=== PATIENT | female | born 1945 | race Caucasian/White ===

== ENCOUNTER 2016-11-04 12:12 | Emergency (ER) | payer MEDICARE, OTHER ==
[~2016-11-04] VITALS: Ht 157.5 cm; Wt 117.9 kg
[~2016-11-04 12:12] MED LIST: AMLO5TAB2 PO; ASPI81TA85 PO; ATEN50TA2 PO; BENA40TA PO; CELE20TA PO; COLA100C3 PO; CREAM TOP; DOCU100C PO; FURO20TA2 PO; LEVA500T PO; LORT5TAB PO; PRAV1TAB39 PO; PRAV40TA2 PO; STOO100C PO; TYLE325T5 PO
[2016-11-04] MEDS ORDERED: AMLO5TAB2 PO (12:37)
--- NOTE | 2016-11-04 14:13 | REP ---
Clinical: Abdominal pain and constipation. Technique: Two supine views of the abdomen and pelvis. Findings: Mild fecal stasis and constipation cannot be excluded. No evidence for bowel obstruction. Prior cholecystectomy noted. Skeletal structures demonstrate age-related degenerative changes. No organomegaly. Impression: Mild fecal stasis and constipation cannot be excluded. No evidence for bowel obstruction. Signed by Ethan Andrew MD 11/04/2016 02:03 P
[2016-11-04] MEDS ORDERED: FLEET OIL RETENTION ENEMA PR ONE (14:30)
[2016-11-04 16:12] VITALS: BP 150/67
[2016-11-04] MEDS ORDERED: MAGNESIUM CITRATE 300 ML BTL PO ONE (16:15)
== END 2016-11-04 16:20 | disposition home or self-care (01) ==
LOC: M ED 14:28
DX: K59.00 Constipation, unspecified (principal); I11.0 Hypertensive heart disease with heart failure; I50.9 Heart failure, unspecified; E66.01 Morbid (severe) obesity due to excess calories; Z95.0 Presence of cardiac pacemaker; Z88.0 Allergy status to penicillin; Z88.1 Allergy status to other antibiotic agents; Z79.899 Other long term (current) drug therapy; Z79.82 Long term (current) use of aspirin

== ENCOUNTER 2017-02-05 09:28 | Emergency (ER) | payer MEDICARE ==
[~2017-02-05] VITALS: Ht 157.5 cm; Wt 120.3 kg
[~2017-02-05 09:28] MED LIST changes: -COLA100C3 PO; +COLA100C5 PO; -DOCU100C PO; +DOCU100C16 PO; +LEVA1TAB2 PO; -LEVA500T PO
[2017-02-05] MEDS ORDERED: NS 500 ML IV ONE (10:00)
[2017-02-05 10:22] LABS: BASO % 0.5 % (0.0-1.0); EOS # 0.2 K/mm3 (0.0-0.50); EOS % 2.3 % (0.0-3.0); LARGE UNSTAINED CELL # 0.1 K/mm3 (0.0-0.4); LARGE UNSTAINED CELL % 1.4 % (0.0-4.0); LYMPH # 1.5 K/mm3 (1.5-4.5); LYMPH % 20.7 % (24.0-44.0); MEAN CORPUSCULAR HEMOGLOBIN 29.9 pg (27.0-33.0); MEAN CORPUSCULAR HGB CONC 32.9 g/dl (32.0-36.5); MEAN CORPUSCULAR VOLUME 91.1 fl (80.0-96.0); MONO # 0.3 K/mm3 (0.0-0.8); MONO % 3.9 % (0.0-5.0); NEUTROPHILS # 5.1 K/mm3 (1.8-7.7); NEUTROPHILS % 71.2 % (36.0-66.0); PLATELET COUNT, AUTOMATED 225 k/mm3 (150-450); RED CELL DISTRIBUTION WIDTH 13.5 % (11.5-14.5); WHITE BLOOD COUNT 7.1 K/mm3 (4.0-10.0)
[2017-02-05 10:50] LABS: ALBUMIN 3.9 GM/DL (3.2-5.2); ALBUMIN/GLOBULIN RATIO 1.08 (1.00-1.93); ALKALINE PHOSPHATASE 148 U/L (45-117); ALT/SGPT 32 U/L (12-78); ANION GAP 9 MEQ/L (8-16); AST/SGOT 19 U/L (15-37); BILIRUBIN,DIRECT 0.1 MG/DL (0.0-0.2); BILIRUBIN,TOTAL 0.5 MG/DL (0.2-1.0); BLOOD UREA NITROGEN 14 MG/DL (7-18); CALCIUM LEVEL 9.3 MG/DL (8.8-10.2); CARBON DIOXIDE LEVEL 28 MEQ/L (21-32); CHLORIDE LEVEL 106 MEQ/L (98-107); CREATININE FOR GFR 0.64 MG/DL (0.55-1.02); GLOMERULAR FILTRATION RATE > 60.0 (>45); GLUCOSE, FASTING 87 MG/DL (80-110); POTASSIUM SERUM 4.1 MEQ/L (3.5-5.1); SODIUM LEVEL 143 MEQ/L (136-145); TOTAL PROTEIN 7.5 GM/DL (6.4-8.2)
[2017-02-05] MEDS ORDERED: KETOROLAC 30 MG/ML VIAL (J1885) IV ONE (12:15)
[2017-02-05] MEDS ORDERED: NAPR500T3 PO (12:55)
[2017-02-05] MEDS ORDERED: ROBA500T PO (12:55)
--- NOTE | 2017-02-05 13:10 | REP ---
LUMBOSACRAL SPINE: Five views lumbosacral spine performed. There is no compression fracture or malalignment. There is normal lumbar lordosis with no spondylolysis or spondylolisthesis. There is mild diffuse spurring with moderate size spurs bridging the right side of L1 and L2. There is mild disc space narrowing and subchondral sclerosis at all levels. There is diffuse sclerosis at the posterior facet joints. There is mild curvature toward the left. The posterior elements appear intact. IMPRESSION: Diffuse degenerative changes. No fracture or dislocation. Signed by Wilder Proctor MD 02/05/2017 05:10 P
[2017-02-05 13:24] VITALS: BP 156/83
== END 2017-02-05 13:29 | disposition home or self-care (01) ==
LOC: M ED 10:19
DX: M54.31 Sciatica, right side (principal); M51.36 Other intervertebral disc degeneration, lumbar region; Z88.0 Allergy status to penicillin; Z88.1 Allergy status to other antibiotic agents; Z79.82 Long term (current) use of aspirin; Z79.899 Other long term (current) drug therapy
CPT/HCPCS: 72110; 80048; 80076; 81001; 83690; 85025; 87086; 96361; 96374; 99283; J1885

== ENCOUNTER → 2018-05-02 | Outpatient (CLI) | payer MEDICARE | LOC: M LRY 12:45 | DX: I51.7 Cardiomegaly (principal); R05 Cough; Z95.0 Presence of cardiac pacemaker | CPT/HCPCS: 71046; G0463 ==

== ENCOUNTER → 2020-07-06 | Outpatient (CLI) | payer MEDICARE ==
[~2020-07-06] MED LIST changes: +AMLO1TAB24 PO; -AMLO5TAB2 PO; -ASPI81TA85 PO; +ASPI81TA86 PO; +MM S100C PO; +NAPR-885 PO; +ROBA500T PO; -STOO100C PO
--- NOTE | 2020-07-06 11:04 | REP ---
INDICATION: SOB COMPARISON: 05/02/2018. TECHNIQUE: PA/Lateral FINDINGS: Lungs: Clear, no infiltrate. Heart: There is very mild cardiomegaly. Mediastinum: There is calcification and tortuosity of the thoracic aorta. The mediastinal silhouette is unchanged. Pleural angles: Unremarkable.. Bones and soft tissues: There are degenerative changes of the spine without compression deformity. Left 2 lead pacemaker is unchanged. IMPRESSION: No acute pulmonary disease. <Electronically signed by Wilder Proctor > 07/06/20 1100
== END ==
LOC: M WUC 10:12
PROVIDERS: ATTEND Nurse Practitioner Adult Health
DX: R06.02 Shortness of breath (principal); Z20.822 Contact with and (suspected) exposure to COVID-19

== ENCOUNTER → 2020-08-14 | Outpatient (CLI) | payer MEDICARE ==
--- NOTE | 2020-08-14 16:39 | REP ---
INDICATION: CONTUSION. COMPARISON: None. TECHNIQUE: Three views right shoulder. FINDINGS: There is no acute fracture or dislocation. There is moderate narrowing and spurring at the acromioclavicular joint. There is a tiny tendinous calcification at the superolateral humeral head. There is mild inferior glenoid spurring. IMPRESSION: Degenerative changes as above. <Electronically signed by Wilder Proctor > 08/14/20 [id number]
== END ==
LOC: M WUC 11:03
PROVIDERS: ATTEND Physician Assistant
DX: S40.011A Contusion of right shoulder, initial encounter (principal); X58.XXXA Exposure to other specified factors, initial encounter; Y92.89 Other specified places as the place of occurrence of the external cause; Y93.89 Activity, other specified; Y99.8 Other external cause status

== ENCOUNTER 2022-01-03 09:17 | Emergency (ER) | payer MEDICARE, MEDICAID ==
[~2022-01-03] VITALS: Ht 157.5 cm; Wt 113.1 kg
[2022-01-03] MEDS ORDERED: CITA10TA7 (10:04)
[2022-01-03] MEDS ORDERED: PRAV40TA2 (10:04)
[2022-01-03] MEDS ORDERED: CITA10TA7 PO (10:04)
[2022-01-03 12:15] LABS: BASO # 0.1 10^3/uL (0.0-0.2); BASO % 0.6 % (0.0-1.0); EOS # 0.1 10^3/uL (0.0-0.5); EOS % 1.1 % (0.0-3.0); HEMATOCRIT 47.2 % (36.0-47.0); HEMOGLOBIN 14.9 g/dl (12.0-15.5); LYMPH # 1.7 10^3/uL (1.5-5.0); LYMPH % 20.7 % (24.0-44.0); MEAN CORPUSCULAR HEMOGLOBIN 29.2 pg (27.0-33.0); MEAN CORPUSCULAR HGB CONC 31.6 g/dl (32.0-36.5); MEAN CORPUSCULAR VOLUME 92.5 fl (80.0-96.0); MONO # 0.4 10^3/uL (0.0-0.8); MONO % 4.2 % (2.0-8.0); NEUTROPHILS # 6.1 10^3/uL (1.5-8.5); NEUTROPHILS % 72.9 % (36.0-66.0); PLATELET COUNT, AUTOMATED 195 10^3/uL (150-450); WHITE BLOOD COUNT 8.3 10^3/uL (4.0-10.0)
[2022-01-03 13:08] LABS: ALBUMIN 3.7 GM/DL (3.2-5.2); ALT/SGPT 17 U/L (12-78); BILIRUBIN,DIRECT 0.2 MG/DL (0.0-0.2); BILIRUBIN,TOTAL 0.7 MG/DL (0.2-1.0); BLOOD UREA NITROGEN 12 MG/DL (7-18); CALCIUM LEVEL 9.7 MG/DL (8.8-10.2); CARBON DIOXIDE LEVEL 28 MEQ/L (21-32); CHLORIDE LEVEL 108 MEQ/L (98-107); CREATININE FOR GFR 0.67 MG/DL (0.55-1.30); GLOMERULAR FILTRATION RATE > 60.0 (>39); GLUCOSE, FASTING 87 MG/DL (70-100); LIPASE 80 U/L (73-393); POTASSIUM SERUM 4.4 MEQ/L (3.5-5.1); SODIUM LEVEL 143 MEQ/L (136-145); TOTAL PROTEIN 6.7 GM/DL (6.4-8.2)
[2022-01-03] MEDS ORDERED: ISOVUE-370 76% 100ML VIAL As Ordered ONE (13:15)
[2022-01-03 14:26] LABS: APPEARANCE, URINE HAZY (CLEAR); BACTERIA, URINE AUTO 1+ (NEGATIVE); BILIRUBIN, URINE AUTO NEGATIVE (NEGATIVE); BLOOD, URINE BLOOD NEGATIVE (NEGATIVE); COLOR, URINE YELLOW (YELLOW); GLUCOSE, URINE (UA) AUTO NEGATIVE (NEGATIVE); KETONE, URINE AUTO NEGATIVE (NEGATIVE); LEUKOCYTE ESTERASE, URINE AUTO 3+ (NEGATIVE); MUCUS, URINE SMALL (NEGATIVE); NITRITE, URINE AUTO NEGATIVE (NEGATIVE); PROTEIN, URINE AUTO NEGATIVE (NEGATIVE); RBC, URINE AUTO 2 /HPF (0-3); RENAL EPITHELIAL CELLS 1 /HPF; SQUAMOUS EPITHELIAL CELL UR AU 9 /HPF (0-6); TRANSITIONAL EPITHELIAL AUTO <1 /HPF; UROBILINOGEN, URINE AUTO 0.2 mg/dL (0.0-2.0); WBC, URINE AUTO 23 /HPF (0-3)
[2022-01-03 14:28] LABS: SPECIFIC GRAVITY URINE AUTO >1.060 (1.002-1.035)
[2022-01-03] MEDS ORDERED: MACR100C43 PO (14:52)
[2022-01-03] MEDS ORDERED: IBUP-1022 PO (14:54)
[2022-01-03 15:14] VITALS: BP 189/88
== END 2022-01-03 15:38 | disposition home or self-care (01) ==
LOC: M ED 09:17
DX: K38.8 Other specified diseases of appendix (principal); N39.0 Urinary tract infection, site not specified; I48.91 Unspecified atrial fibrillation; I10 Essential (primary) hypertension; I50.9 Heart failure, unspecified; Z79.82 Long term (current) use of aspirin; Z79.899 Other long term (current) drug therapy; Z88.0 Allergy status to penicillin
CPT/HCPCS: 74177; 80048; 80076; 81001; 83690; 85025; 99284; Q9967

== ENCOUNTER → 2022-07-10 | Outpatient (CLI) | payer MEDICARE, MEDICAID ==
[~2022-07-10] MED LIST changes: +CITA10TA7; +CITA10TA7 PO; +IBUP-1022 PO; +MACR100C43 PO; +PRAV40TA2
== END ==
LOC: M SOG 07:53
PROVIDERS: ATTEND Orthopaedic Surgery Adult Reconstructive Orthopaedic Surgery
DX: M25.562 Pain in left knee (principal)

== ENCOUNTER 2023-03-27 09:45 | Emergency (ER) | payer MEDICARE, MEDICAID ==
[~2023-03-27] VITALS: Ht 157.5 cm; Wt 112.2 kg
[2023-03-27 09:46] VITALS: TEMP 97
[2023-03-27] MEDS ORDERED: MED REC CURRENTLY UNOBTAINABLE XX SCH (10:15)
[2023-03-27] MEDS ORDERED: ASPIRIN 81MG CHEW TABLET PO ONE (10:20)
[2023-03-27] MEDS ORDERED: ERGO500029 (10:23)
[2023-03-27 10:31] LABS: BASO # 0.1 10^3/uL (0.0-0.2); BASO % 0.9 % (0.0-1.0); EOS # 0.1 10^3/uL (0.0-0.5); EOS % 1.7 % (0.0-3.0); HEMATOCRIT 43.3 % (36.0-47.0); LYMPH # 1.3 10^3/uL (1.5-5.0); LYMPH % 17.2 % (24.0-44.0); MEAN CORPUSCULAR HEMOGLOBIN 29.6 pg (27.0-33.0); MEAN CORPUSCULAR HGB CONC 32.3 g/dl (32.0-36.5); MEAN CORPUSCULAR VOLUME 91.5 fl (80.0-96.0); MONO # 0.5 10^3/uL (0.0-0.8); MONO % 5.9 % (2.0-8.0); NEUTROPHILS # 5.6 10^3/uL (1.5-8.5); NEUTROPHILS % 73.9 % (36.0-66.0); PLATELET COUNT, AUTOMATED 205 10^3/uL (150-450); RED BLOOD COUNT 4.73 10^6/uL (4.00-5.40); WHITE BLOOD COUNT 7.6 10^3/uL (4.0-10.0)
[2023-03-27 10:43] LABS: LIPASE 31 U/L (12-53)
[2023-03-27 10:45] LABS: ALBUMIN 3.5 G/DL (3.2-5.2); ALKALINE PHOSPHATASE 126 U/L (46-116); ALT/SGPT 13 U/L (7.0-40); AST/SGOT 15 U/L (<34); BILIRUBIN,DIRECT 0.2 MG/DL (<0.4); BILIRUBIN,TOTAL 0.8 MG/DL (0.3-1.2); BLOOD UREA NITROGEN 15 MG/DL (9-23); CARBON DIOXIDE LEVEL 27 MMOL/L (20-31); CHLORIDE LEVEL 107 MMOL/L (98-107); CK-MB VALUE MASS < 1.0 NG/ML (<3.6); CREATININE FOR GFR 0.71 MG/DL (0.55-1.30); GLOMERULAR FILTRATION RATE > 60.0 (>39); GLUCOSE, FASTING 92 MG/DL (74-106); POTASSIUM SERUM 4.1 MMOL/L (3.5-5.1); SODIUM LEVEL 141 MMOL/L (136-145); TOTAL PROTEIN 6.3 G/DL (5.7-8.2)
[2023-03-27 10:49] LABS: CPK CREATINE PHOSPHOKINASE 62 U/L (34-145); MB/CK RELATIVE INDEX 1.61 (< OR =4)
[2023-03-27 11:54] LABS: CK-MB VALUE MASS < 1.0 NG/ML (<3.6)
[2023-03-27 11:56] LABS: CPK CREATINE PHOSPHOKINASE 53 U/L (34-145); MB/CK RELATIVE INDEX 1.88 (< OR =4)
[2023-03-27] MEDS ORDERED: ISOVUE-370 76% 100ML VIAL As Ordered ONE (12:06)
[2023-03-27 12:20] VITALS: BP 177/97
[2023-03-27 13:00] VITALS: O2SAT 96
== END 2023-03-27 13:31 | disposition home or self-care (01) ==
LOC: M ED 09:45
DX: R07.89 Other chest pain (principal); I10 Essential (primary) hypertension; E66.9 Obesity, unspecified; Z95.0 Presence of cardiac pacemaker; Z88.0 Allergy status to penicillin; Z88.1 Allergy status to other antibiotic agents; Z79.82 Long term (current) use of aspirin; Z79.899 Other long term (current) drug therapy
CPT/HCPCS: 36415; 71045; 71275; 80048; 80076; 82550; 82553; 83690; 84484; 85025; 93005; 93041; 94760; 99285; Q9967

== ENCOUNTER 2023-09-12 12:35 | Emergency (ER) | payer MEDICARE, MEDICAID ==
[~2023-09-12] VITALS: Ht 162.6 cm; Wt 115.3 kg
[~2023-09-12 12:35] MED LIST changes: +ERGO500029
[2023-09-12 14:37] LABS: BASO # 0.1 10^3/uL (0.0-0.2); BASO % 0.8 % (0.0-1.0); EOS # 0.2 10^3/uL (0.0-0.5); EOS % 2.4 % (0.0-3.0); HEMATOCRIT 43.7 % (36.0-47.0); HEMOGLOBIN 14.2 g/dl (12.0-15.5); LYMPH # 1.6 10^3/uL (1.5-5.0); LYMPH % 25.8 % (24.0-44.0); MEAN CORPUSCULAR HEMOGLOBIN 29.8 pg (27.0-33.0); MEAN CORPUSCULAR HGB CONC 32.5 g/dl (32.0-36.5); MEAN CORPUSCULAR VOLUME 91.6 fl (80.0-96.0); MONO # 0.3 10^3/uL (0.0-0.8); MONO % 5.3 % (2.0-8.0); NEUTROPHILS # 4.1 10^3/uL (1.5-8.5); NEUTROPHILS % 65.2 % (36.0-66.0); PLATELET COUNT, AUTOMATED 201 10^3/uL (150-450); RED BLOOD COUNT 4.77 10^6/uL (4.00-5.40); WHITE BLOOD COUNT 6.3 10^3/uL (4.0-10.0)
[2023-09-12 15:01] LABS: LIPASE 29 U/L (12-53)
[2023-09-12 15:04] LABS: ALBUMIN 3.5 G/DL (3.2-5.2); ALKALINE PHOSPHATASE 108 U/L (46-116); ALT/SGPT 19 U/L (7.0-40); AST/SGOT 23 U/L (<34); BILIRUBIN,DIRECT 0.2 MG/DL (<0.4); BILIRUBIN,TOTAL 0.8 MG/DL (0.3-1.2); BLOOD UREA NITROGEN 9 MG/DL (9-23); CALCIUM LEVEL 9.3 MG/DL (8.3-10.6); CARBON DIOXIDE LEVEL 31 MMOL/L (20-31); CHLORIDE LEVEL 105 MMOL/L (98-107); CK-MB VALUE MASS < 1.0 NG/ML (<3.6); GLOMERULAR FILTRATION RATE > 60.0 (>39); GLUCOSE, FASTING 90 MG/DL (74-106); POTASSIUM SERUM 4.3 MMOL/L (3.5-5.1); SODIUM LEVEL 138 MMOL/L (136-145); TOTAL PROTEIN 6.4 G/DL (5.7-8.2)
[2023-09-12 15:05] LABS: FREE T4 0.99 NG/DL (0.89-1.76)
[2023-09-12 15:09] LABS: CPK CREATINE PHOSPHOKINASE 40 U/L (34-145)
[2023-09-12 15:30] VITALS: BP 159/72; O2SAT 96
[2023-09-12 15:46] VITALS: TEMP 97.6
== END 2023-09-12 16:11 | disposition home or self-care (01) ==
LOC: M ED 12:35
DX: R07.9 Chest pain, unspecified (principal); R53.1 Weakness; I50.22 Chronic systolic (congestive) heart failure; I11.0 Hypertensive heart disease with heart failure; E78.5 Hyperlipidemia, unspecified; Z88.0 Allergy status to penicillin; Z88.1 Allergy status to other antibiotic agents; Z79.899 Other long term (current) drug therapy

== ENCOUNTER 2025-01-08 15:13 | Emergency (ER) | payer MEDICARE, MEDICAID ==
[~2025-01-08] VITALS: Ht 157.5 cm; Wt 113.6 kg
[~2025-01-08 15:13] MED LIST changes: -PRAV40TA2; -PRAV40TA2 PO; +PRAV40TA85; +PRAV40TA85 PO
[2025-01-08 17:30] VITALS: BP 135/62; TEMP 98.1; O2SAT 96
== END 2025-01-08 18:01 | disposition home or self-care (01) ==
LOC: M ED 15:13 → EDBD 15:13 → M ED 18:01
DX: S06.0X0A Concussion without loss of consciousness, initial encounter (principal); S00.83XA Contusion of other part of head, initial encounter; Y92.9 Unspecified place or not applicable; Y93.9 Activity, unspecified; Y99.9 Unspecified external cause status; W01.10XA Fall on same level from slipping, tripping and stumbling with subsequent striking against unspecified object, initial encounter; I50.22 Chronic systolic (congestive) heart failure; I11.0 Hypertensive heart disease with heart failure; Z88.0 Allergy status to penicillin; Z88.1 Allergy status to other antibiotic agents; Z79.1 Long term (current) use of non-steroidal anti-inflammatories (NSAID); Z79.899 Other long term (current) drug therapy

== ENCOUNTER 2025-06-15 08:28 | Emergency (ER) | payer MEDICARE, MEDICAID ==
[~2025-06-15] VITALS: Ht 157.5 cm; Wt 112.0 kg
[~2025-06-15 08:28] MED LIST changes: -IBUP-1022 PO; +IBUP600T42 PO
[2025-06-15] MEDS: NEOSPORIN OINT 0.9 GM PKT TOP ONE (11:12)
[2025-06-15] MEDS: LIDOCAINE 1% MDV 20 ML VIAL SC ONE (11:12)
[2025-06-15 11:46] VITALS: BP 157/69; TEMP 97.4; O2SAT 99
== END 2025-06-15 11:48 | disposition home or self-care (01) ==
LOC: EDBD 08:28 → M ED 08:28
DX: S01.311A Laceration without foreign body of right ear, initial encounter (principal); Y92.019 Unspecified place in single-family (private) house as the place of occurrence of the external cause; Y93.9 Activity, unspecified; Y99.9 Unspecified external cause status; W01.0XXA Fall on same level from slipping, tripping and stumbling without subsequent striking against object, initial encounter; I50.22 Chronic systolic (congestive) heart failure; Z88.0 Allergy status to penicillin; Z88.1 Allergy status to other antibiotic agents; Z79.1 Long term (current) use of non-steroidal anti-inflammatories (NSAID); Z79.899 Other long term (current) drug therapy